=== PATIENT | female | born 1985 | race Hispanic/Latino ===

== ENCOUNTER → 2023-11-28 | Outpatient (CLI) | payer OTHER ==
[2023-11-28 07:51] LABS: BASOPHILS # (AUTO) 0.04 K/uL (0.00-0.20); BASOPHILS % (AUTO) 0.6 % (0.0-5.0); EOSINOPHILS # (AUTO) 0.07 K/uL (0.00-0.70); HEMATOCRIT 39.2 % (36-48); IMMATURE GRANULOCYTE ABSOLUTE 0.01 K/uL (0-1); LYMPHOCYTES # (AUTO) 2.8 K/uL (1.0-4.8); LYMPHOCYTES % (AUTO) 40.7 % (21.0-51.0); MEAN CORPUSCULAR HEMOGLOBIN 26.4 pg (27.0-33.0); MEAN CORPUSCULAR HGB CONC 33.2 g/dL (32.0-36.0); MEAN CORPUSCULAR VOLUME 79.7 fL (79-99); MONOCYTES # (AUTO) 0.5 K/uL (0.1-1.0); MONOCYTES % (AUTO) 6.7 % (3.0-13.0); NEUTROPHILS # (AUTO) 3.4 K/uL (1.8-7.7); NEUTROPHILS % (AUTO) 50.9 % (40.0-77.0); PLATELET COUNT (AUTO) 298 K/uL (130-400); RED BLOOD CELL COUNT(AUTO) 4.92 MIL/uL (4.00-5.50); RED CELL DISTRIBUTION WIDTH 12.6 % (11.0-15.5); WHITE BLOOD COUNT (AUTO) 6.8 K/uL (4.8-10.8)
[2023-11-28 08:08] LABS: % IRON SATURATION 19.8 % (22-44)
[2023-11-28 08:10] LABS: HEMOGLOBIN A1C 5.3 % (4.0-6.0)
[2023-11-28 09:02] LABS: ALBUMIN 3.8 g/dL (3.5-5.0); BILIRUBIN,TOTAL 0.4 mg/dL (0.2-1.0); CREATININE 0.7 mg/dL (0.5-1.5); POTASSIUM 3.8 mmol/L (3.5-5.1); THYROID STIMULATING HORMONE 1.85 uIU/mL (0.36-3.74); TOTAL PROTEIN, SERUM 7.2 g/dL (6.0-8.3)
== END | disposition home or self-care (01) ==
LOC: RAH 07:21
PROVIDERS: ATTEND Nurse Practitioner Adult Health
DX: Z12.31 Encounter for screening mammogram for malignant neoplasm of breast (principal); E53.8 Deficiency of other specified B group vitamins; D64.9 Anemia, unspecified; Z98.82 Breast implant status
CPT/HCPCS: 36415; 77067; 80053; 80061; 82306; 82607; 83036; 83540; 83550; 84443; 85025

== ENCOUNTER 2025-04-06 09:23 | Emergency (ER) | payer OTHER ==
[~2025-04-06] VITALS: Ht 154.9 cm; Wt 63.5 kg
[2025-04-06 09:56] LABS: BASOPHILS # (AUTO) 0.05 K/uL (0.00-0.20); BASOPHILS % (AUTO) 0.9 % (0.0-5.0); EOSINOPHILS # (AUTO) 0.07 K/uL (0.00-0.70); EOSINOPHILS % (AUTO) 1.2 % (0.0-8.0); HEMATOCRIT 37.6 % (36-48); IMMATURE GRANULOCYTE ABSOLUTE 0.01 K/uL (0-1); LYMPHOCYTES # (AUTO) 2.9 K/uL (1.0-4.8); LYMPHOCYTES % (AUTO) 50.2 % (21.0-51.0); MEAN CORPUSCULAR HEMOGLOBIN 26.6 pg (27.0-33.0); MEAN CORPUSCULAR HGB CONC 33.2 g/dL (32.0-36.0); MONOCYTES # (AUTO) 0.4 K/uL (0.1-1.0); MONOCYTES % (AUTO) 6.4 % (3.0-13.0); NEUTROPHILS # (AUTO) 2.4 K/uL (1.8-7.7); NEUTROPHILS % (AUTO) 41.1 % (40.0-77.0); PLATELET COUNT (AUTO) 300 K/uL (130-400); RED CELL DISTRIBUTION WIDTH 13.3 % (11.0-15.5); WHITE BLOOD COUNT (AUTO) 5.7 K/uL (4.8-10.8)
[2025-04-06 10:04] LABS: HCG,QUALITATIVE URINE NEGATIVE (NEGATIVE)
[2025-04-06 10:08] LABS: APPEARANCE,URINE CLEAR (CLEAR); BILIRUBIN,URINE NEGATIVE (NEGATIVE); COLOR,URINE YELLOW (YELLOW); GLUCOSE, URINE (UA) NEGATIVE (NEGATIVE); KETONES,URINE NEGATIVE (NEGATIVE); LEUKOCYTE ESTERASE ,URINE NEGATIVE Leu/uL (NEGATIVE); MUCUS,URINE RARE LPF (None Seen); NITRATE,URINE NEGATIVE (NEGATIVE); PH,URINE 5.5 (5.0-8.0); PROTEIN,URINE NEGATIVE (NEGATIVE); UROBILINOGEN,URINE 0.2 mg/dL (0.2-1.0); WBC,URINE 0-1 /HPF (0-1)
[2025-04-06 10:08] LABS: CREATININE 0.7 mg/dL (0.5-1.0)
[2025-04-06] MEDS: 0.9%NACL 1000ML 1,000 ML IV ONE (10:55)
[2025-04-06] MEDS: ketOROlac 15MG/ML VIAL (15MG/ML) ONE (11:01)
[2025-04-06] MEDS: ketOROlac 15MG/ML VIAL (15MG/ML) IV ONE (11:01)
--- NOTE | 2025-04-06 11:14 | ERN ---
General Chief Complaint: Flank Pain Stated Complaint: FLANK PAIN Time Seen by MD: 09:28 Source: patient History of Present Illness Initial Comments In his is a 39-year-old female coming in to be evaluated for bilateral flank pain. Patient states that the pain has been ongoing for six weeks progressively getting worse. She states that last night she has a more pain than normal. She states that her PCP has a requested ultrasound and was found to have kidney stones. Allergies: Coded Allergies: copper (Unverified Allergy, Intermediate, 04/06/25) Past Medical History Past Medical History: No Pertinent History Past Surgical History: Other Surgical History Other: TUBAL LIGATION Female( History) LMP: Apr 01, 2025 ROS Dictation CONSTITUTIONAL: No chills, no fever, no weakness, no diaphoresis, no malaise. HEAD/FACE: No signs of trauma. EENT: No eye pain, no blurred vision, no tearing, no double vision, no ear pain, no ear discharge, no nose pain, no nasal congestion, no throat pain, no throat swelling, no mouth pain. RESPIRATORY: No cough, no orthopnea, no SOB, no stridor, no wheezing. CARDIOVASCULAR: No chest pain, no edema, no palpitations, no syncope. GASTROINTESTINAL/ABDOMINAL: abdominal pain, no constipation, no diarrhea, no nausea, no vomiting. GENITOURINARY: No abnormal discharge, no dysuria, no frequent urination, no hematuria. No complaints of pain in the genitals. MUSCULOSKELETAL: No back pain, no gout, no joint pain, no joint swelling, no muscle pain, no muscle stiffness, no neck pain. INTEGUMENTARY: No change in color, no change in hair/nails, no dryness, no lesion, no lumps, no rash. NEUROLOGICAL/PSYCH: No anxiety, not depressed, no emotional problem, no headache, no numbness, no pre-existing deficit, no history of seizures, no tremors, no weakness. HEMATOLOGIC/LYMPHATIC: Not anemic, no history of blood clots, no apparent bleeding, no bruising, glands not swollen. All Systems Negative, Except as Noted. Physical Exam Physical Exam Dictation VITAL SIGNS: Reviewed. GENERAL APPEARANCE: Alert, oriented x3, no acute distress, obese. HEAD AND FACE: Non-traumatic. EYES: PERRL, pink conjunctivas, eyelid no trauma, anterior chamber clear. EARS: Pinnas intact and no signs of trauma or erythema. Ear canals clear and no discharge. TMs no erythema. NOSE: No discharge, no bleeding. OROPHARYNX: Mouth normal, teeth no caries, tongue pink. Pharynx clear, no erythema. Tonsils no exudates, no abscesses noted. Mucous membrane moist. NECK: Supple, non-tender, no thyromegaly, no masses, no JVD, no bruits. BREAST: Deferred. CHEST: No tenderness, no crepitus, no paradoxical movement, no retractions. LUNGS: Clear, well-ventilated, symmetric, no rales, no wheezing, no rhonchi, no stridor, good breath sounds bilaterally. HEART: Regular rate, regular rhythm, no murmur, no gallops. VASCULAR: No peripheral edema. ABDOMEN: Soft, positive bowel sounds, nondistended, no guarding, bilateral flank pain, CVA angle tenderness on palpation, no rebound, no masses no hepatomegaly, no splenomegaly, no Monge's sign, no hernias. RECTAL: Deferred. GENITAL: Deferred. NEUROLOGICAL: Normal speech, gross motor function intact, gross sensory function intact. MUSCULOSKELETAL: Neck nontender, full range of motion, back nontender, full range of motion. EXTREMITIES: Nontender, full range of motion. SKIN: Color pink, dry, no turgor, no rash, no lacerations, no abrasions, no contusions. LYMPHATICS: Deferred. Results Laboratory and Microbiology Lab and Micro Result Laboratory Tests Test 04/06/25 09:30 04/06/25 09:40 Urine Color YELLOW (YELLOW) Urine Appearance CLEAR (CLEAR) Urine pH 5.5 (5.0-8.0) Urine Specific [place] 1.007 (1.001-1.031) Urine Protein NEGATIVE mg/dL (NEGATIVE) Urine Glucose (UA) NEGATIVE mg/dL (NEGATIVE) Urine Ketones NEGATIVE mg/dL (NEGATIVE) Urine Occult Blood +- (TRACE) (NEGATIVE) H Urine Nitrate NEGATIVE (NEGATIVE) Urine Bilirubin NEGATIVE mg/dL (NEGATIVE) Urine Urobilinogen 0.2 mg/dL (0.2-1.0) Urine Leukocyte Esterase NEGATIVE [place]/uL Urine RBC 2-5 /HPF (0-1) H Urine WBC 0-1 /HPF (0-1) Urine Bacteria None /HPF (None Seen) Urine HCG, Qualitative NEGATIVE (NEGATIVE) White Blood Count 5.7 K/uL (4.8-10.8) Red Blood Count 4.70 MIL/uL (4.00-5.50) Hemoglobin 12.5 g/dL (12.0-16.0) Hematocrit 37.6 % (36-48) Mean Corpuscular Volume 80.0 fL (79-99) Mean Corpuscular Hemoglobin 26.6 pg (27.0-33.0) L Mean Corpuscular Hemoglobin Concent 33.2 g/dL (32.0-36.0) Red Cell Distribution Width 13.3 % (11.0-15.5) Platelet Count 300 K/uL (130-400) Mean Platelet Volume 9.6 fL (7.5-10.5) Immature Granulocyte % (Auto) 0.2 % (0-1) Neutrophils (%) (Auto) 41.1 % (40.0-77.0) Lymphocytes (%) (Auto) 50.2 % (21.0-51.0) Monocytes (%) (Auto) 6.4 % (3.0-13.0) Eosinophils (%) (Auto) 1.2 % (0.0-8.0) Basophils (%) (Auto) 0.9 % (0.0-5.0) Neutrophils # (Auto) 2.4 K/uL (1.8-7.7) Lymphocytes # (Auto) 2.9 K/uL (1.0-4.8) Monocytes # (Auto) 0.4 K/uL (0.1-1.0) Eosinophils # (Auto) 0.07 K/uL (0.00-0.70) Basophils # (Auto) 0.05 K/uL (0.00-0.20) Absolute Immature Granulocyte (auto 0.01 K/uL (0-1) Nucleated Red Blood Cells 0.0 % (0.0-0.19) Sodium Level 141 mmol/L (136-145) Potassium Level 4.0 mmol/L (3.5-5.1) Chloride Level 106 mmol/L (101-111) Carbon Dioxide Level 31 mmol/L (21-32) Blood Urea Nitrogen 15 mg/dL (7-18) Creatinine 0.7 mg/dL (0.5-1.0) Glomerular Filtration Rate Calc 111 mL/min (>90) Random Glucose 69 mg/dL (70-105) L Total Calcium 9.0 mg/dL (8.5-10.1) Labs Reviewed?: Yes EKG/XRAY/US/CT/MRI CT Scan Comment [facility] [address] [place] [address] IMAGING REPORT Signed PATIENT: JESSY MICHELLE MR#: [id number] : 1985 SEX: F AGE: 39 LOCATION: [facility] ORDER 1020 STATUS: REG ER REPORT#: [id number] SERVICE 1016 REASON: flank pain ORDERING PHYSICIAN: MAJO GARCIA MD PROCEDURE: ABD PEL WO - CT ABDOMEN/PELVIS W/O CONTRAST CT ABDOMEN/PELVIS W/O CONTRAST HISTORY: Pain COMPARISON: None TECHNIQUE: Multiple sequential axial images of the abdomen and pelvis were obtained from the dome of the diaphragm through symphysis pubis. Patient was not given contrast through intravenous route. Oral contrast was not given. FINDINGS: There are bilateral breast implants. No pleural effusion is seen bilaterally. There is no evidence of parenchymal disease or pulmonary nodule of the visualized lower lungs. Degenerative changes of the thoracolumbar spine are present. The heart is not enlarged. Liver measures 17 cm. Fatty changes of the liver are noted. 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 The liver, spleen, adrenal glands and pancreas are unremarkable. There is no evidence of hydronephrosis bilaterally. Small bilateral renal pelvic stones measuring 2 mm bilaterally. Fecal material is seen in the colon. There are normal size retroperitoneal and mesenteric lymph nodes. No ascites is seen. Atherosclerotic changes are present. Pelvic sidewalls are symmetric bilaterally. Bladder is poorly distended. IMPRESSION: 1. Tiny bilateral renal pelvic stones without hydronephrosis. CT was performed with one or more following dose reduction techniques: automated exposure control, adjustment of the mA and kv according to patient's size, or use of a iterative reconstruction technique. DICTATED BY: MATEUS VARELA MD DATE: 04/06/25 1129 ELECTRONICALLY SIGNED BY: MATEUS VARELA MD DATE: 04/06/25 1256 [facility] MDM: Differential diagnosis: Kidney stones, nephrolithiasis, Rationale: Tests considered and ordered secondary to shared decision making include: Previous outside records reviewed: Old ER visits. Risk of complication and/or morbidity or mortality of patient management: None Medications-Per medication reconciliation Need for hospitalization: Patient does not meet criteria for hospitalization. Patient is a 39-year-old female coming in complaining of bilateral flank pain. CT disclose small kidney stones otherwise unremarkable. Patient will be discharged in stable condition with a diagnosis of kidney stones. ED Course Orders Procedure Category Date Status Time Cbc With Differential LAB 04/06/25 Complete 09:32 Basic Metabolic Panel LAB 04/06/25 Complete 09:32 Urinalysis LAB 04/06/25 Complete W/Microscopic 09:32 ,Urine Test LAB 04/06/25 Complete 09:32 0.9%Nacl 1000ml (Ns PHA 04/06/25 Complete 1000ml) 10:00 Ct Abdomen/Pelvis W/O CT 04/06/25 Resulted Contrast 10:16 Ketorolac PHA 04/06/25 Complete Tromethamine 15mg/Ml 10:52 Ketorolac PHA 04/06/25 Complete Tromethamine 15mg/Ml 11:00 Current Medications Medications (Trade) Dose Ordered Sig/Patrick Route PRN Reason Start Time Stop Time Status Last Admin Dose Admin Ketorolac Tromethamine (toRADol) 15 mg ONCE ONCE IV 04/06/25 11:00 04/06/25 11:01 DC 04/06/25 11:01 Ketorolac Tromethamine (toRADol) 15 mg STK-MED ONCE .ROUTE 04/06/25 10:52 04/06/25 10:55 DC Sodium Chloride 1,000 ml @ 0 mls/hr ONCE ONCE IV 04/06/25 10:00 04/06/25 10:01 DC 04/06/25 10:55 Vital Signs Date Time Temp Pulse Resp B/P (MAP) Pulse Ox O2 Delivery O2 Flow Rate FiO2 04/06/25 11:05 98.2 75 16 112/74 98 Room Air* 0 21 04/06/25 09:26 98.6 78 18 110/74 Room Air DX & DISP Disposition: Discharge Departure Impression: Primary Impression: Kidney stones Condition: Stable Additional Instructions: FOLLOW-UP WITH PRIMARY CARE PROVIDER IN 1 TO 2 DAYS. TAKE MEDICATIONS DIRECTED HERE IN THE EMERGENCY ROOM. OKAY TO CONTINUE HOME MEDICATIONS UNLESS OTHERWISE DISCUSSED DURING YOUR VISIT IN THE EMERGENCY ROOM TODAY. RETURN TO YOUR NEAREST EMERGENCY ROOM IF SYMPTOMS WORSEN OR IF THERE IS NO IMPROVEMENT. CALL 911 IF YOU NEED IMMEDIATE ASSISTANCE. TAKE TYLENOL [id number] NEEDED AND IF NO CONTRAINDICATIONS ARE PRESENT. INCREASE ORAL HYDRATION. A WOUND CULTURE OR URINE CULTURE WAS ORDERED HERE IN THE EMERGENCY ROOM DEPARTMENT PLEASE FOLLOW-UP WITH PRIMARY CARE PROVIDER AND ADVISE THEM TO GET REPORTS FROM OUR FACILITY. IF YOU HAD ANY LEAH WRAP/SPLINTS THAT WERE APPLIED HERE, PLEASE DO NOT REMOVE THEM UNTIL YOU SEE YOUR PRIMARY CARE OR SPECIALTY. Referrals: Referrals: JODIE MANZO DIRECTOR OF MEDICAL SERVICES (PCP) CORNELIUS AREVALO MD Time of Disposition: 13:01 MAJO GARCIA MD Apr 06, 2025 11:14
--- NOTE | 2025-04-06 12:56 | HMCIMG ---
CT ABDOMEN/PELVIS W/O CONTRAST HISTORY: Pain COMPARISON: None TECHNIQUE: Multiple sequential axial images of the abdomen and pelvis were obtained from the dome of the diaphragm through symphysis pubis. Patient was not given contrast through intravenous route. Oral contrast was not given. FINDINGS: There are bilateral breast implants. No pleural effusion is seen bilaterally. There is no evidence of parenchymal disease or pulmonary nodule of the visualized lower lungs. Degenerative changes of the thoracolumbar spine are present. The heart is not enlarged. Liver measures 17 cm. Fatty changes of the liver are noted. 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 The liver, spleen, adrenal glands and pancreas are unremarkable. There is no evidence of hydronephrosis bilaterally. Small bilateral renal pelvic stones measuring 2 mm bilaterally. Fecal material is seen in the colon. There are normal size retroperitoneal and mesenteric lymph nodes. No ascites is seen. Atherosclerotic changes are present. Pelvic sidewalls are symmetric bilaterally. Bladder is poorly distended. IMPRESSION: 1. Tiny bilateral renal pelvic stones without hydronephrosis. CT was performed with one or more following dose reduction techniques: automated exposure control, adjustment of the mA and kv according to patient's size, or use of a iterative reconstruction technique.
[2025-04-06 13:04] VITALS: BP 101/68; PULSE 75; RESP 16; TEMP 98.3; O2SAT 98
== END 2025-04-06 13:13 | disposition home or self-care (01) ==
LOC: EDH 09:23
DX: N20.0 Calculus of kidney (principal); Z98.51 Tubal ligation status
CPT/HCPCS: 99285; 74176; 96374; 96361; 80048; 85025; 81001; 81025; 36415; J1885; J7030

== ENCOUNTER → 2025-07-02 | Outpatient (CLI) | payer OTHER ==
--- NOTE | 2025-07-02 16:23 | HMCIMG ---
PELVIC ULTRASOUND INDICATION: Left lower quadrant pain TECHNIQUE: Pelvic ultrasound was performed by a clamp remover and reviewed by a radiologist. FINDINGS: Uterus: 9.1 x 4.7 x 4.2 cm. Unremarkable sonographic appearance. Endometrial complex: 0.7 cm. Right adnexa: 2.7 x 2.4 x 3.0 cm. Unremarkable sonographic appearance. Left adnexa: 2.4 x 2.9 x 1.5 cm. Unremarkable sonographic appearance. Cul-de-sac: Unremarkable. IMPRESSION: Normal pelvic sonogram
--- NOTE | 2025-07-02 16:26 | HMCIMG ---
US THYROID/NECK HISTORY: SCREENING TECHNIQUE: Real-time thyroid ultrasound was performed. FINDINGS: Right thyroid lobe measures 4.2 x 1.5 x 1.5 cm.. Thyroid gland has homogeneous echotexture. Left thyroid lobe measures 4.2 x 1.5 x 1.3 cm. The left thyroid lobe is heterogeneous echotexture. The isthmus measures 0.2 cm.. No discrete thyroid nodule is seen. IMPRESSION: No nodule identified with homogeneous echotexture. TI-RADS code is 1
== END | disposition home or self-care (01) ==
LOC: RAH 08:13
PROVIDERS: ATTEND Nurse Practitioner Adult Health
DX: Z12.31 Encounter for screening mammogram for malignant neoplasm of breast (principal); R19.04 Left lower quadrant abdominal swelling, mass and lump; E04.9 Nontoxic goiter, unspecified; Z98.82 Breast implant status
CPT/HCPCS: 76536; 76856; 77063; 77067

== ENCOUNTER → 2025-07-16 | Outpatient (CLI) | payer OTHER | END | disposition home or self-care (01) | LOC: LAB 08:55 | DX: E55.9 Vitamin D deficiency, unspecified (principal); N95.9 Unspecified menopausal and perimenopausal disorder; R53.82 Chronic fatigue, unspecified; R94.6 Abnormal results of thyroid function studies; Z79.890 Hormone replacement therapy; D50.8 Other iron deficiency anemias; Z00.00 Encounter for general adult medical examination without abnormal findings | CPT/HCPCS: 36415; 82040; 82670; 82728; 83001; 84270; 84402; 84403 ==

== ENCOUNTER → 2025-07-28 | Outpatient (CLI) | payer OTHER ==
--- NOTE | 2025-07-28 14:21 | HMCIMG ---
EXAM: X-RAY CHEST, TWO VIEWS Technique: Posteroanterior and lateral projections of the chest were obtained and submitted for interpretation. Clinical Information: History of positive purified protein derivative (PPD) test. Comparison: None available. Findings: The pulmonary mcadams demonstrate symmetrical aeration without infiltrates, nodules, or cavitary lesions. The cardiac silhouette is within normal limits in size and contour. The mediastinum and yahir are normal in configuration without widening or mass. The retrosternal space is clear with no abnormal opacity. The costophrenic and cardiophrenic angles are sharp bilaterally. No pleural effusion or pneumothorax is identified. The visualized osseous structures, including the ribs and thoracic spine, appear intact without acute abnormality. No subdiaphragmatic free air is seen. IMPRESSION: 1. No acute cardiopulmonary findings. /[facility]
== END | disposition home or self-care (01) ==
LOC: RAH 12:13
PROVIDERS: ATTEND Nurse Practitioner Adult Health
DX: Z86.11 Personal history of tuberculosis (principal)
CPT/HCPCS: 71046